=== PATIENT | male | born 1995 | race Caucasian/White ===

== ENCOUNTER 2017-04-07 02:45 | Emergency (ER) | payer OTHER ==
[~2017-04-07] VITALS: Ht 195.6 cm; Wt 86.4 kg
[2017-04-07] MEDS ORDERED: LIDOCAINE 1% MDV 20ML VIAL SC ONE (03:45)
[2017-04-07] MEDS ORDERED: LIDOCAINE 1% MDV INJ 50 ML VIAL SC ONE (03:45)
[2017-04-07] MEDS ORDERED: LIDOCAINE W/EPINEPHRINE 1% 20ML VIAL SC ONE (03:45)
[2017-04-07 04:18] VITALS: BP 119/71
== END 2017-04-07 04:25 | disposition home or self-care (01) ==
LOC: M ED 02:45
DX: S01.01XA Laceration without foreign body of scalp, initial encounter (principal); S61.411A Laceration without foreign body of right hand, initial encounter; Y04.8XXA Assault by other bodily force, initial encounter; Y92.410 Unspecified street and highway as the place of occurrence of the external cause; Y93.89 Activity, other specified; Y99.9 Unspecified external cause status